=== PATIENT | female | born 1965 | race Caucasian/White ===

== ENCOUNTER 2021-08-21 10:35 | Emergency (ER) | payer SELFPAY ==
[2021-08-21] MEDS ORDERED: NA CHLORIDE 0.9% 2,000 ML ONE (11:06)
[2021-08-21] MEDS ORDERED: ONDANSETRON 4 MG/2 ML VIAL ONE (11:06)
[2021-08-21] MEDS ORDERED: MORPHINE 4 MG/ML SYR ONE (11:06)
[2021-08-21 11:13] LABS: Absolute Lymphocytes (CBC) 0.7 K/uL (0.7-4.9); Basophils % 0.6 % (0-1.3); Hematocrit 39.1 % (36.0-45.0); Lymphocytes % 12.1 % (15.3-44.8); MPV 8.3 fL (7.6-11.3); RBC Red Blood Cell Count 4.51 M/uL (3.86-4.86)
[2021-08-21 11:13] LABS: Urine Blood Negative (Negative); Urine Glucose Negative (Negative); Urine Protein Negative (Negative)
[2021-08-21 11:30] LABS: Albumin 4.5 g/dL (3.4-5.0); Bilirubin Direct 0.1 mg/dL (0-0.2); Bilirubin Total 0.3 mg/dL (0.2-1.0); Potassium 3.6 mmol/L (3.5-5.1); Protein, Total 7.9 g/dL (6.4-8.2)
--- NOTE | 2021-08-21 12:00 | RAD REPORT ---
EXAM DESCRIPTION: CTAbdomen Pelvis W Contrast - 08/21/2021 11:48 am CLINICAL HISTORY: ABD PAIN COMPARISON: No comparisonsNo comparisons TECHNIQUE: CT of the abdomen and pelvis was performed. All CT scans are performed using dose optimization technique as appropriate and may include automated exposure control or mA/KV adjustment according to patient size. FINDINGS: Lower chest: No acute abnormality. Small hiatal hernia. Liver: No acute abnormality or suspicious lesions. Biliary: Cholecystectomy. Extrahepatic biliary duct dilatation noted. This may be related to the post cholecystectomy state. Common bile duct measures 12 millimeters. Stomach: No significant focal abnormality. Haile-en-Y gastric bypass. Duodenum: No significant focal abnormality. Pancreas: No significant abnormality. Spleen: No significant abnormality. Adrenal: No suspicious lesions. Kidney/ureter: No hydronephrosis. No renal calculi. Retroperitoneum: No retroperitoneal adenopathy. Vascular: No aneurysm. Bowel: No significant focal abnormality. Peritoneum: No ascites or free air. Small fat containing umbilical hernia. Bladder: Grossly unremarkable. Reproductive: No adnexal masses. Hysterectomy. Bones: No acute fracture. Left hip arthroplasty. Other: n/a IMPRESSION: No acute intra-abdominal or pelvic finding. Status post Haile-en-Y gastric bypass with sm all hiatal hernia. Extrahepatic biliary duct dilatation may be related to the postcholecystectomy sta te. Correlate with LFTs.
--- NOTE | 2021-08-21 13:40 | ER ---
Nurse's Notes [facility] Name: Mone Carmona Age: 56 yrs Sex: Female : 1965 Arrival Date: 08/21/2021 Time: 10:37 Bed 19 Private MD: Diagnosis: Abdominal pain, unspecified Presentation: 08/21 10:43 Chief complaint: Patient states: Pt has a hx of Diverticulitis. States the past 3 weeks vg1 has not been eating well, stated has been eating spicy foods. On August 16 states RUQ pain that 'feels like im being stabbed and its a shooting type pain' with nausea . Went to see PCP on 08/18 and states was given Metronidazole, Prednisone, and Dicyclomine but are not helping with pain. Coronavirus screen: Vaccine status: Patient reports receiving the 2nd dose of the covid vaccine. Client denies travel out of the [place] in the last 14 days. Ebola Screen: Patient negative for fever greater than or equal to 101.5 degrees Fahrenheit, and additional compatible Ebola Virus Disease symptoms. Initial Sepsis Screen: Does the patient meet any 2 criteria? No. Patient's initial sepsis screen is negative. Does the patient have a suspected source of infection? No. Patient's initial sepsis screen is negative. Risk Assessment: Do you want to hurt yourself or someone else? Patient reports no desire to harm self or others. Onset of symptoms was August 16, 2021. 10:43 Method Of Arrival: Ambulatory vg1 10:43 Acuity: ZAINAB 3 vg1 Triage Assessment: 10:47 General: Appears in no apparent distress. uncomfortable, Behavior is calm, cooperative. vg1 Pain: Complains of pain in right upper quadrant Quality of pain is described as shooting, stabbing. GI: Abdomen is round Last BM was August 21, 2021. Reports nausea, Patient currently denies diarrhea, vomiting. Historical: - Allergies: 10:47 No Known Allergies; vg1 - Home Meds: 10:47 Metronidazole Oral [Active]; Prednisone Oral [Active]; Dicyclomine Oral [Active]; vg1 Lisinopril Oral [Active]; gabapentin oral [Active]; Tramadol-Acetaminophen Oral [Active]; Xanax Oral [Active]; - PMHx: 10:47 Diverticulitis; Hypertensive disorder; Arthritis; vg1 - PSHx: 10:47 Left Hip; Right Ankle; Left Ankle; Partial Hysterectomy; Gastric Bypass; vg1 Cholecystectomy; Repair of Hiatal Hernia; - Immunization history:: Adult Immunizations up to date, Client reports receiving the 2nd dose of the Covid vaccine. - Social history:: Smoking status: Patient denies any tobacco usage or history of. Screenin:58 Abuse screen: Denies threats or abuse. Nutritional screening: No deficits noted. sl2 Tuberculosis screening: No symptoms or risk factors identified. Fall Risk None identified. No fall in past 12 months (0 pts). No secondary diagnosis (0 pts). No IV (0 pts). Ambulatory Aid- None/Bed Rest/Nurse Assist (0 pts). Gait- Normal/Bed Rest/Wheelchair (0 pts) Mental Status- Oriented to own ability (0 pts). Total Purcell Fall Scale indicates No Risk (0-24 pts). Assessment: 10:58 General: Appears in no apparent distress. well groomed, well developed, Behavior is sl2 calm, cooperative, appropriate for age, Reports RUQ abdominal pain. Pain: Complains of pain in abdomen and right upper quadrant Pain does not radiate. Pain currently is 6 out of 10 on a pain scale. at worst was 10 out of 10 on a pain scale. level that patient reports is acceptable is 2 out of 10 on a pain scale. Quality of pain is described as aching, sharp, stabbing, Pain began 2-3 days ago. Is continuous. Neuro: No deficits noted. Level of Consciousness is awake, alert, obeys commands, Oriented to person, place, time, situation, Appropriate for age Student Counselor are equal bilaterally Moves all extremities. Gait is steady, Speech is normal, Facial symmetry appears normal, Cardiovascular: No deficits noted. Respiratory: No deficits noted. GI: Abdomen is round obese, Bowel sounds present X 4 quads. Abd is soft and non tender X 4 quads. Reports upper abdominal pain, Patient currently denies diarrhea, nausea, vomiting. : No deficits noted. No signs and/or symptoms were reported regarding the genitourinary system. EENT: No deficits noted. No signs and/or symptoms were reported regarding the EENT system. Derm: No deficits noted. No signs and/or symptoms reported regarding the dermatologic system. Musculoskeletal: No deficits noted. No signs and/or symptoms reported regarding the musculoskeletal system. 13:25 Reassessment: JUSTIN Harry at bedside discussing results and POC. jl7 13:30 Reassessment: Pt returned from CT with right AC IV infiltrated, 20 G to left AC placed jl7 by Susan critical power technician, fluids hooked up and IV infiltrated. 22 gauge to right hand placed and IV infiltrated again, fluids dc'd per ERP. Vital Signs: 10:43 BP 140 / 65; Pulse 70; Resp 16; Temp 99.5(TE); Pulse Ox 100% ; Weight 111.13 kg; Height vg1 5 ft. 8 in. (172.72 cm); Pain 7/10; 10:58 BP 142 / 76; Pulse 74; Resp 18; Temp 99.5(O); Pulse Ox 99% on R/A; sl2 11:22 BP 127 / 75; Pulse 74; Resp 18; Temp 98.4(O); Pulse Ox 100% on R/A; sl2 12:30 BP 115 / 69; Pulse 75; Resp 18; Temp 98.2; Pulse Ox 99% ; sl2 13:37 BP 117 / 49; Pulse 76; Resp 18; Pulse Ox 100% on R/A; mh5 10:43 Body Mass Index 37.25 (111.13 kg, 172.72 cm) vg1 ED Course: 10:37 Patient arrived in ED. ds1 10:47 Triage completed. vg1 10:47 Arm band placed on. vg1 10:54 Brittney Church, RODRIGUEZ is Primary Nurse. sl2 10:56 Piero Bui NP is PHCP. pm1 10:56 Radha Bennett MD is Attending Physician. pm1 10:58 Patient has correct armband on for positive identification. Placed in gown. Bed in low sl2 position. Call light in reach. 11:13 Basic Metabolic Panel Sent. 5 11:13 CBC with Diff Sent. mh5 11:13 Hepatic Function Sent. mh5 11:13 Lipase Sent. 5 11:13 Initial lab(s) drawn, by mt, sent to lab. Urine collected: clean catch specimen, clear. 5 Inserted saline lock: 20 gauge in right antecubital area, using aseptic technique. Blood collected. 11:14 Patient has correct armband on for positive identification. Placed in gown. Bed in low mh5 position. Call light in reach. Side rails up X 1. Warm blanket given. Pulse ox on. NIBP on. 11:[address] via stretcher. sl2 11:48 CT Abd/Pelvis - IV Contrast Only In Process Unspecified. EDMS 13:55 No provider procedures requiring assistance completed. IV discontinued, intact, sl2 bleeding controlled, No redness/swelling at site. Pressure dressing applied. Administered Medications: 11:08 Drug: NS 0.9% 1000 ml Route: IV; Rate: 1 bolus; Site: right antecubital; sl2 11:21 Follow up: Response: No adverse reaction sl2 12:30 Follow up: IV Status: Completed infusion; IV Intake: 1000ml sl2 13:42 Follow up: IV Status: IV infiltrated jl7 11:10 Drug: Zofran (Ondansetron) 4 mg Route: IVP; Site: right antecubital; sl2 11:22 Follow up: Response: No adverse reaction sl2 11:14 Drug: morphine 4 mg Route: IVP; Site: right antecubital; sl2 11:22 Follow up: Response: No adverse reaction; Pain is decreased sl2 13:04 Drug: NS 0.9% 1000 ml Route: IV; Rate: 1000 ml; Site: left antecubital; sl2 13:41 Follow up: IV Status: IV infiltrated jl7 13:57 Follow up: Response: No adverse reaction; IV Status: Completed infusion; IV Intake: sl2 100ml Intake: 12:30 IV: 1000ml; Total: 1000ml. sl2 13:57 IV: 100ml; Total: 1100ml. sl2 Outcome: 13:40 Discharge ordered by . pm1 13:55 Discharged to home ambulatory. sl2 13:55 Condition: stable 13:55 Discharge instructions given to Instructed on Demonstrated understanding of instructions, follow-up care, medications. 13:57 Patient left the ED. sl2 Signatures: Dispatcher [employer] [facility] Manasa Bartholomew Patrick, NP WINDING INSPECTOR pm1 Lashawn Rivera [facility] Houston Fuller RN RN jl7 Leola Bergman RN RN 1 Brittney Church RN RN sl2 Corrections: (The following items were deleted from the chart) 10:50 10:47 PSHx: Repair of inguinal hernia; vg1 vg1
--- NOTE | 2021-08-21 13:40 | EDPHYS ---
Physician Documentation [facility] Name: Mone Carmona Age: 56 yrs Sex: Female : 1965 Arrival Date: 08/21/2021 Time: 10:37 Bed 19 Private MD: ED Physician Radha Bennett HPI: 08/21 11:00 This 56 yrs old Female presents to ER via Ambulatory with complaints of pm1 Abdominal Pain. 11:00 The patient presents with abdominal pain in the right upper quadrant. Onset: The pm1 symptoms/episode began/occurred 5 day(s) ago. The symptoms do not radiate. Associated signs and symptoms: Pertinent positives: nausea, Pertinent negatives: diarrhea, dysuria, fever, vomiting. The symptoms are described as sharp. Modifying factors: The symptoms are alleviated by nothing, the symptoms are aggravated by spicy food. Severity of pain: in the emergency department the pain is actually worse. The patient has experienced a previous episode, About 6 months ago she had RUQ that was diverticulitis. Historical: - Allergies: 10:47 No Known Allergies; vg1 - Home Meds: 10:47 Metronidazole Oral [Active]; Prednisone Oral [Active]; Dicyclomine Oral [Active]; vg1 Lisinopril Oral [Active]; gabapentin oral [Active]; Tramadol-Acetaminophen Oral [Active]; Xanax Oral [Active]; - PMHx: 10:47 Diverticulitis; Hypertensive disorder; Arthritis; vg1 - PSHx: 10:47 Left Hip; Right Ankle; Left Ankle; Partial Hysterectomy; Gastric Bypass; vg1 Cholecystectomy; Repair of Hiatal Hernia; - Immunization history:: Adult Immunizations up to date, Client reports receiving the 2nd dose of the Covid vaccine. - Social history:: Smoking status: Patient denies any tobacco usage or history of. ROS: 11:00 Constitutional: Negative for fever, chills, and weight loss, Cardiovascular: Negative pm1 for chest pain, palpitations, and edema, Respiratory: Negative for shortness of breath, cough, wheezing, and pleuritic chest pain. 11:00 Back: Negative for injury and pain, : Negative for injury, bleeding, discharge, and swelling, MS/Extremity: Negative for injury and deformity, Skin: Negative for injury, rash, and discoloration, Neuro: Negative for headache, weakness, numbness, tingling, and seizure. 11:00 Abdomen/GI: Positive for abdominal pain, of the right upper quadrant, Negative for nausea, vomiting, and diarrhea. 11:00 All other systems are negative. Exam: 11:00 Constitutional: This is a well developed, well nourished patient who is awake, alert, pm1 and in no acute distress. Head/Face: Normocephalic, atraumatic. 11:00 Back: No spinal tenderness. No costovertebral tenderness. Full range of motion. Skin: Warm, dry with normal turgor. Normal color with no rashes, no lesions, and no evidence of cellulitis. MS/ Extremity: Pulses equal, no cyanosis. Neurovascular intact. Full, normal range of motion. 11:00 Eyes: Exam is negative for acute changes, Periorbital structures: appear normal, Extraocular movements: no acute changes, Conjunctiva: no acute changes, no injection. 11:00 ENT: Exam is negative for acute changes, Mouth: no acute changes, Lips: normal, moist, Oral mucosa: normal, pink and intact, moist. 11:00 Cardiovascular: Exam negative for acute changes, Rate: normal, Rhythm: regular, Pulses: no pulse deficits are appreciated. 11:00 Respiratory: Exam negative for acute changes, respiratory distress, shortness of breath, Breath sounds: are clear throughout. 11:00 Abdomen/GI: Inspection: obese Palpation: soft, in all quadrants, mild abdominal tenderness, in the right upper quadrant. 11:00 Neuro: Exam negative for acute changes, Orientation: is normal, Mentation: is normal, Motor: is normal, moves all fours. Vital Signs: 10:43 BP 140 / 65; Pulse 70; Resp 16; Temp 99.5(TE); Pulse Ox 100% ; Weight 111.13 kg; Height vg1 5 ft. 8 in. (172.72 cm); Pain 7/10; 10:58 BP 142 / 76; Pulse 74; Resp 18; Temp 99.5(O); Pulse Ox 99% on R/A; sl2 11:22 BP 127 / 75; Pulse 74; Resp 18; Temp 98.4(O); Pulse Ox 100% on R/A; sl2 12:30 BP 115 / 69; Pulse 75; Resp 18; Temp 98.2; Pulse Ox 99% ; sl2 13:37 BP 117 / 49; Pulse 76; Resp 18; Pulse Ox 100% on R/A; mh5 10:43 Body Mass Index 37.25 (111.13 kg, 172.72 cm) vg1 MDM: 10:56 Patient medically screened. pm1 13:39 Data reviewed: vital signs. Data interpreted: Pulse oximetry: on room air is 100 %. pm1 Interpretation: normal. Counseling: I had a detailed discussion with the patient and/or guardian regarding: the historical points, exam findings, and any diagnostic results supporting the discharge/admit diagnosis, lab results, radiology results, the need for outpatient follow up, a family practitioner, a lead ruby on rails developer, to return to the emergency department if symptoms worsen or persist or if there are any questions or concerns that arise at home. 08/21 10:45 Order name: Basic Metabolic Panel; Complete Time: 11:35 ma2 08/21 10:45 Order name: CBC with Diff; Complete Time: 11:19 ma2 08/21 10:45 Order name: Hepatic Function; Complete Time: 11:35 ma2 08/21 10:45 Order name: Lipase; Complete Time: 11:35 ma2 08/21 11:00 Order name: CT Abd/Pelvis - IV Contrast Only; Complete Time: 12:03 pm1 08/21 11:12 Order name: Urine Dipstick-Ancillary; Complete Time: 11:15 EDMS 08/21 10:45 Order name: IV Saline Lock; Complete Time: 11:12 ma2 08/21 10:45 Order name: Labs collected and sent; Complete Time: 11:13 ma2 08/21 10:45 Order name: Urine Dipstick-Ancillary (obtain specimen); Complete Time: 11:12 ma2 08/21 12:04 Order name: Diet Regular; Complete Time: 12:04 eb 08/21 11:00 Order name: NPO; Complete Time: 11:14 pm1 Administered Medications: 11:08 Drug: NS 0.9% 1000 ml Route: IV; Rate: 1 bolus; Site: right antecubital; sl2 11:21 Follow up: Response: No adverse reaction sl2 12:30 Follow up: IV Status: Completed infusion; IV Intake: 1000ml sl2 13:42 Follow up: IV Status: IV infiltrated 7 11:10 Drug: Zofran (Ondansetron) 4 mg Route: IVP; Site: right antecubital; sl2 11:22 Follow up: Response: No adverse reaction sl2 11:14 Drug: morphine 4 mg Route: IVP; Site: right antecubital; sl2 11:22 Follow up: Response: No adverse reaction; Pain is decreased sl2 13:04 Drug: NS 0.9% 1000 ml Route: IV; Rate: 1000 ml; Site: left antecubital; sl2 13:41 Follow up: IV Status: IV infiltrated jl7 13:57 Follow up: Response: No adverse reaction; IV Status: Completed infusion; IV Intake: sl2 100ml Disposition Summary: 08/21/21 13:40 Discharge Ordered Location: Home pm1 Problem: new pm1 Symptoms: have improved pm1 Condition: Stable pm1 Diagnosis - Abdominal pain, unspecified pm1 Followup: pm1 - With: Emergency Department - When: As needed - Reason: Worsening of condition Followup: pm1 - With: Private Physician - When: 2 - 3 days - Reason: Recheck today's complaints, Continuance of care, Re-evaluation by your physician Discharge Instructions: - Discharge Summary Sheet pm1 - Abdominal Pain, Adult pm1 Forms: - Medication Reconciliation Form pm1 - Thank You Letter pm1 - Antibiotic Education pm1 - Prescription Opioid Use pm1 Addendum: 08/30/2021 05:25 Co-signature as Attending Physician, Radha Bennett MD PA/DIESEL TRUCK DRIVER's history reviewed, m a2 patient interviewed, and examined. I agree with assessment and care plan and confirm the diagnosis (es) above. Signatures: Dispatcher [employer] [facility] Piero Bui NP DIESEL TRUCK DRIVER pm1 Radha Bennett MD MD ma2 Leola Bergman, RN RN vg1 Brittney Church RN RN sl2 [place] Fuller RN jl7 Corrections: (The following items were deleted from the chart) 08/21 10:50 10:47 PSHx: Repair of inguinal hernia; vg1 vg1
[2021-08-21 14:22] VITALS: TEMP 98.2
[2021-08-21 14:23] VITALS: BP 117/49; O2SAT 100
== END 2021-08-21 13:57 | disposition home or self-care (01) ==
LOC: ER 10:35
DX: R10.11 Right upper quadrant pain (principal); I10 Essential (primary) hypertension
CPT/HCPCS: 36415; 74177; 80048; 80076; 81003; 83690; 85025; 96361; 96374; 96375; 99284; J2405; J7030; Q9967